=== PATIENT | female | born 1940 | race Caucasian/White ===

== ENCOUNTER 2020-08-04 14:13 | Emergency (ER) | payer MEDICARE, BC ==
[2020-08-04] MEDS ORDERED: BUFFERED LIDOCAINE 10 ML SYRINGE SUBQ STA (14:29)
[2020-08-04] MEDS ORDERED: TETANUS/DIPHTHERIA/PERTUSSIS 0.5 ML SYRINGE IM ONE (14:29)
[2020-08-04] MEDS ORDERED: BACITRACIN ZINC OINT 1 PACKET TOP STA (14:32)
--- NOTE | 2020-08-04 14:32 | ED Physician Documentation ---
History of Present Illness - Stated complaint Stated Complaint: HEAD LAC - Chief complaint Chief Complaint: Laceration - Additonal information Additional information: Very pleasant 80-year-old female presents the emergency department for kami luation of a very large right parietal scalp laceration sustained yesterday evening when she was at home climbing her stairs. She went to step on the stair but missed the landing and fell backwards down 2-3 stairs. She struck her head on sharp molding. She has a fairly large wound measuring 6 to 8 cm that bled profusely through the night. However it is since stopped bleeding but given the large defect she comes to the ER today for further evaluation. She did not lose consciousness. She is not anticoagulated. Denies headache, neck pain, loss of vision or vomiting since the accident. Unknown last tetanus. Review of Systems Constitutional: reports: Reviewed and negative Eyes: reports: Reviewed and negative Ears: reports: Reviewed and negative Nose: reports: Reviewed and negative Throat: reports: Reviewed and negative Cardiac: reports: Chest pain / pressure Respiratory: reports: Reviewed and negative GI: reports: Reviewed and negative Skin: reports: Laceration (s) (8 cm right parietal scalp) Musculoskeletal: denies: Neck pain, Back pain PD PAST MEDICAL HISTORY - Present Medications Home Medications: Ambulatory Orders Medication Instructions Recorded Confirmed Aspirin [[place] Aspirin] 81 mg PO DAILY 08/04/20 08/04/20 Rosuvastatin Calcium [Crestor] 40 mg PO HS 08/04/20 08/04/20 cephALEXin [Keflex] 500 mg PO Q8H #15 08/04/20 hydroCHLOROthiazide [Hydrodiuril] 25 mg PO DAILY 08/04/20 08/04/20 traZODone [Desyrel] 50 mg PO HS 08/04/20 08/04/20 - Allergies Allergies/Adverse Reactions: Allergies Allergy/AdvReac Type Severity Reaction Status Date / Time azithromycin Allergy Nausea Verified 08/04/20 14:17 Opioids - Morphine Analogues Allergy Nausea Verified 08/04/20 14:17 PD ED PE EXPANDED - General General: Alert, No acute distress - HEENT HEENT: PERRL, EOMI, Ears normal, Other (8 cm right parietal occipital scalp laceration) - Neck Neck: Supple w/out meningeal sx. No: Adenopathy, Soft tissue TTP, Bony TTP - Cardiac Cardiac: Regular Rate, Radial strong equal, Cap refill < 2 sec - Respiratory Respiratory: Clear to ausultation katherine. No: Distress, Labored - Abdomen Abdomen: Normal Bowel sounds. No: Tender to palpation - Back Back: Normal exam. No: Vertebral tenderness, Soft tissue tenderness - Derm Derm: Laceration(s) (8 cm right parietal/occipital scalp laceration) - Neuro Neuro: Alert and Oriented X 3, CNII-XII intact, Normal gait, Normal finger nose, Normal speech - GCS Eye Opening: Spontaneous Motor: Obeys Commands Verbal: Oriented Total: 15 Results - Vitals Vitals: Vital Signs - 24 hr 08/04/20 14:19 Temperature 36.7 C Heart Rate 89 Respiratory 19 Rate Blood Pressure 122/88 H O2 Saturation 94 Oxygen O2 Source Room air - Rads (name of study) CT head Radiology: Final report received (no acute fractures. Extensive right parietal scalp wound identified. No intracranial hemorrhage is identified.) Procedures - Laceration (location) right parietal scalp Length in cm: 8 Wound type: Curved, Into muscle, Clean Neurovascular status: Sensory intact Anesthesia: Lidocaine 1% Wound preparation: Chlorhexadine, Irrigated copiously NS, Wound explored, To the base, Extensive undermining, Other (Extensive hematoma was expressed from under the wound and the undermining wound edges.) Skin layer closure: Eileen (10 eileen placed) PD MEDICAL DECISION MAKING - ED course Complexity details: reviewed results, re-evaluated patient, d/w patient, d/w family ED course: 80-year-old female presents emergency department for evaluation and treatment of a large right parietal scalp hematoma and laceration sustained when she fell down 2 stairs last night striking her head on molding on the floor. There was no loss consciousness. She is not anticoagulated. She denies any headaches neck pain vision changes vomiting since the event. CT of the head did not show any acute intracranial findings. The new wound was cleansed and thoroughly irrigated at the bedside. There was a large hematoma that was expressed through the wound and under the undermining edges. Wound was closed with 10 eileen. Given delayed closure limited amount of Keflex was prescribed. Routine wound care emergent return precautions were discussed. Departure - Departure Disposition: 01 Home, Self Care Clinical Impression: Scalp laceration Qualifiers: Encounter type: initial encounter Qualified Code(s): S01.01XA - Laceration without foreign body of scalp, initial encounter Condition: Stable Record reviewed to determine appropriate education?: Yes Instructions: ED Laceration Scalp Stitch Or Stap Prescriptions: cephALEXin [Keflex] 500 mg PO Q8H #15 Comments: Jenelle you are seen in the ER today after a fall down 2 stairs last night which you sustained a scalp laceration. The CT of your head was normal for age and did not show signs of bruising or bleeding of the brain. There were no skull fractures. We did place 10 eileen into your wound. They should be removed in about 1 week's time. Because this was a fairly delayed wound closure I would like you to fill the prescription for the Keflex and take as directed for the next 5 days. You may shower normally. However please be careful running a brush or comb through the your hair as you will snagged the eileen. Please place a thin layer of antibiotic ointment over the laceration after washing. Return to the ER if you have fevers, increased pain milky drainage any concerns of infection or you develop a suddenly severe headache, have uncontrolled vomiting or vision changes.
--- NOTE | 2020-08-04 15:01 | CT Report ---
PROCEDURE: HEAD WO INDICATIONS: fell down 2 stairs; large right parietal scalp lac TECHNIQUE: Noncontrast 4.5 mm thick angled axial sections acquired from the foramen magnum to the vertex. For r adiation dose reduction, the following was used: automated exposure control, adjustment of mA and/or kV according to patient size. COMPARISON: None. FINDINGS: Cerebrum, Cerebellum and Brainstem: Moderate cerebral and cerebellar atrophy as well as moderate mul tifocal hypoattenuation in the deep and subcortical white matter present. No acute hemorrhage or mas s effect. Stevens-white distinction is preserved throughout the exam. Basal cisterns and foramen magnu m are clear. Ventricles: Appropriate in size and position given the amount of cerebral atrophy. No evidence of h ydrocephalus. Skull Base: The bony sella, pituitary gland and infundibulum are unremarkable. Clivus and craniover tebral relationships are appropriate. Visualized portions of external auditory canals and tympanic c avities are within normal limits. Debris in the bilateral external auditory canals can be correlated with direct visualization. Calvarium and Scalp: Right posterior parietal scalp soft tissue swelling noted. No underlying skull f racture Paranasal Sinuses: Unremarkable as visualized. No mucosal thickening or retention cyst note d. Mastoids: Unremarkable as visualized. No mastoid effusion present. Other: Atherosclerotic calcification in the cavernous portions of the distal internal carotid arteri es are noted. IMPRESSION: 1. Atrophy and multifocal white matter chronic ischemic change without acute hemorrhage or mass effe ct. 2. Right parietal scalp hematoma without underlying skull fracture. Reviewed by: Everardo Perdomo MD on 08/04/2020 2:00 PM [facility] Approved by: Everardo Perdomo MD on 08/04/2020 2:00 PM [facility] Station ID: [id number]
[2020-08-04 15:26] VITALS: BP 132/75
== END 2020-08-04 15:26 | disposition home or self-care (01) ==
LOC: ED 14:13
DX: S01.01XA Laceration without foreign body of scalp, initial encounter (principal); S09.12XA Laceration of muscle and tendon of head, initial encounter; S00.03XA Contusion of scalp, initial encounter; W10.9XXA Fall (on) (from) unspecified stairs and steps, initial encounter; Y93.01 Activity, walking, marching and hiking; Y92.009 Unspecified place in unspecified non-institutional (private) residence as the place of occurrence of the external cause; Z23 Encounter for immunization; Z79.82 Long term (current) use of aspirin
CPT/HCPCS: 13121; 13122; 70450; 90471; 90715; 99284; A9270